=== PATIENT | female | born 1985 | race Caucasian/White ===

== ENCOUNTER 2019-06-22 05:29 | Day surgery (SDC) | payer OTHER ==
[2019-06-16 09:49] LABS: ABSOLUTE BASOPHILS # (AUTO) 0.1 10^3/uL (0.0-0.2); ABSOLUTE EOSINOPHILS # (AUTO) 0.4 10^3/uL (0.0-0.6); ABSOLUTE MONOCYTES (AUTO) 0.6 10^3/uL (0.1-1.4); ABSOLUTE NEUT (AUTO) 5.6 10^3/uL (1.7-8.2); BASOPHILS % (AUTO) 0.7 % (0-2); HEMATOCRIT 39.1 % (36.0-47.0); HEMOGLOBIN 13.7 g/dL (12.0-15.5); LYMPHOCYTES % (AUTO) 30.9 % (13-45); MEAN CORPUSCULAR HEMOGLOBIN 30.1 pg (27.0-33.4); MEAN CORPUSCULAR HGB CONC 35.1 g/dL (32.0-36.0); MEAN CORPUSCULAR VOLUME 86 fl (80-97); MONOCYTES % (AUTO) 6.5 % (3-13); PLATELET COUNT 279 10^3/uL (150-450); RED BLOOD COUNT 4.55 10^6/uL (3.72-5.28); RED CELL DISTRIBUTION WIDTH 12.8 % (11.5-14.0); SEGMENTED NEUTROPHILS % (AUTO) 57.9 % (42-78); TOTAL CELLS COUNTED % (AUTO) 100 %; WHITE BLOOD COUNT 9.6 10^3/uL (4.0-10.5)
[~2019-06-22 05:29] MED LIST: LACTATED RINGERS 1000 ML IV PRN; LIDOCAINE 0.5% INJ-PF (5 MG/ML) 50 ML SDV SUBCUT PRN
[2019-06-22] MEDS ORDERED: LIDOCAINE 2% INJ-PF (100 MG/5 ML) SYRINGE ONE (06:55)
[2019-06-22] MEDS ORDERED: DEXAMETHASONE SOD PHOSPHATE INJ 4 MG/1 ML VIAL ONE (06:55)
[2019-06-22] MEDS ORDERED: ONDANSETRON HCL INJ/PF 4 MG/2 ML SDV ONE (06:55)
[2019-06-22] MEDS ORDERED: MIDAZOLAM 2 MG/2 ML INJ ONE (06:55)
[2019-06-22] MEDS ORDERED: FENTANYL CITRATE INJ/PF 100 MCG/2 ML AMPUL ONE (06:55)
[2019-06-22] MEDS ORDERED: PROPOFOL INJ 200 MG/20 ML VIAL IV ONE (06:56)
[2019-06-22] MEDS ORDERED: BUPIVACAINE HCL 0.25 % INJ/PF (2.5 MG/1 ML) 30 ML VIAL ONE (07:18)
[2019-06-22] MEDS ORDERED: LIDOCAINE 1% INJ-PF (10 MG/ML) 30 ML SDV ONE (07:18)
[2019-06-22] MEDS ORDERED: GENTAMICIN SULFATE INJ 80 MG/2 ML VIAL ONE (07:32)
[2019-06-22] MEDS ORDERED: OXYCODONE-ACETAMINOPHEN 5-325 MG TABLET PO PRN ×4 (08:07→09:38)
[2019-06-22] MEDS ORDERED: FENTANYL CITRATE INJ/PF 100 MCG/2 ML AMPUL IV PRN ×3 (08:07)
[2019-06-22] MEDS ORDERED: DIPHENHYDRAMINE HCL 50 MG/ML VIAL IV PRN (08:07)
[2019-06-22] MEDS ORDERED: MEPERIDINE HCL/PF INJ 25 MG/1 ML DISP.SYRIN IV PRN (08:07)
[2019-06-22] MEDS ORDERED: PROMETHAZINE HCL INJ 25 MG/1 ML VIAL IV PRN ×3 (08:07→10:30)
[2019-06-22] MEDS ORDERED: MORPHINE SULFATE 10 MG/ML INJ IV PRN (08:07)
[2019-06-22] MEDS ORDERED: ONDANSETRON HCL INJ/PF 4 MG/2 ML SDV IV PRN (08:07)
[2019-06-22] MEDS ORDERED: ACETAMINOPHEN 1,000 MG/100 ML RTUPB IV ONE (08:12)
[2019-06-22] MEDS ORDERED: KETOROLAC TROMETHAMINE INJ/PF 30 MG/1 ML SDV ONE (08:55)
[2019-06-22] MEDS: FENTANYL CITRATE INJ/PF 100 MCG/2 ML AMPUL ONE ×4 (09:07→09:15)
--- NOTE | 2019-06-22 09:32 | Operative Report ---
Operative Report DATE OF SURGERY: 06/22/19 PREOPERATIVE DIAGNOSIS: Undesired fiertility /Menorrhagia POSTOPERATIVE DIAGNOSIS: same OPERATION: Laparoscopic Filschie Clips / D&C / Hysteroscopy / Novasure SURGEON: DARYL SIDDIQUI DIRECTOR FINANCIAL SYSTEMS: none ANESTHESIA: GA TISSUE REMOVED OR ALTERED: Endometrium COMPLICATIONS: None ESTIMATED BLOOD LOSS: 25 cc INTRAOPERATIVE FINDINGS: Normal female PROCEDURE: Patient was brought into the OR and placed on table in a supine position. She was inducted under general anesthesia. Then repositioned in a dorsolithotomy position. The bladder was drained of approximately 50 cc of clear yellow urine. A pelvic under anesthesia was then performed with normal findings. A vaginal speculum was inserted. Cervix is grasped on its anterior lip with a single- tooth tenaculum. Uterus was sounded to 8 cm. Tenaculum probe was then applied to the cervix. The speculum was removed. Attention was turned toward the abdominal wall. A varies needle was then inserted through the umbilicus and carried through the various layers until the abdominal cavity was entered. Drop of saline was placed on the varies needle the abdomen was picked up and the drop easily egressed into the peritoneum. Varies needle was removed and a small incision was made infraumbilically. Through this incision a trocar and sleeve were inserted. It was removed and through the sleeve a laparoscope was inserted. A second incision was made suprapubically. Through this incision a trocar and sleeve were inserted. Trocar was removed and through the sleeve clip applicators were inserted. The tubes were then clipped bilaterally. The lower sleeve was removed. There was no evidence of active bleeding. The subumbilical port was then removed. 4 cc of quarter percent Marcaine were injected in the subumbilical and suprapubic incisions. The fascia was closed in both incisions with a 0 Vicryl. The infraumbilical incision was closed with a subcuticular using 4-0 Prolene. The suprapubic incision was closed with interrupted using 4- 0 Prolene. Attention was turned back to the pelvis and the vagina. Weighted speculum was inserted into the vagina. The anterior lip of the cervix was grasped with a single-tooth tenaculum and an Allis clamp. The cervix was dilated to a #8 Hegar's dilator. Cervical length was 4 cm. The endometrial cavity measured 5 cm. Using a #8 suction catheter the endometrium was removed. Using a hysteroscope the cavity was explored with negative findings. NovaSure was then opened up and purged. NovaSure was gently inserted through the endocervix and into the endometrial cavity. The NovaSure was opened up. And going north-south and East and West a number of times. The cavity width was determined to be 4.4 cm. The sleeve was then applied to the ectocervix. The cavity was tested. The equipment was then empowered. Burn time 1 minute. This terminated the procedure. The NovaSure was removed. Using the hysteroscope the endometrial cavity was reexamined. There was a good endometrial burn. The excess saline was then suctioned out. Clamps were removed. Speculum was removed. May blood loss 25 cc. Patient was placed back in the supine position. Anesthesia was DC'd and the patient was transferred to the recovery room in satisfactory condition.
[2019-06-22] MEDS ORDERED: NEOSTIGMINE METHYLSULFATE 10 MG/10 ML VIAL ONE (10:17)
[2019-06-22] MEDS ORDERED: GLYCOPYRROLATE 1 MG/5 ML VIAL ONE (10:17)
[2019-06-22 11:07] VITALS: BP 135/81
== END 2019-06-22 10:45 | disposition home or self-care (01) ==
LOC: OROUT 05:29
PROVIDERS: ATTEND Obstetrics & Gynecology
DX: Z30.2 Encounter for sterilization (principal); N92.0 Excessive and frequent menstruation with regular cycle; N93.8 Other specified abnormal uterine and vaginal bleeding
CPT/HCPCS: 36415; 85025; 81025; 88305 ×2; 58563; 58671; J2250; J1100; J3010; J2001; J1885; J2710; J2405; J2704; J0131; J3490; J1580